=== PATIENT | male | born 1960 | race Caucasian/White ===

== ENCOUNTER 2018-10-08 16:40 | Emergency (ER) | payer MEDICAID ==
[~2018-10-08] VITALS: Ht 172.7 cm; Wt 136.4 kg
[2018-10-08 16:47] VITALS: TEMP 97.8
[2018-10-08 17:13] LABS: BASO # 0.1 (0.0-0.2); BASO % 0.6 % (0.0-2.0); EOS # 0.2 (0.0-0.7); EOS % 1.9 % (0-4.0); GRAN # 6.2 (1.4-6.5); GRAN % 66.2 % (42.2-75.2); HEMATOCRIT 47.7 % (42.0-52.0); HEMOGLOBIN 16.3 g/dl (13.5-18.0); LYMPH # 2.1 (1.2-3.4); LYMPH % 22.3 % (20.0-51.0); MEAN CELL VOLUME 90 fl (80.0-100.0); MEAN CORPUSCULAR HEMOGLOBIN 31 pg (27.0-31.0); MEAN CORPUSCULAR HGB CONC 34 g/dl (33.0-37.0); MEAN PLATELET VOLUME 9.8 fl (7.4-10.4); MONO # 0.8 (0.1-0.6); MONO % 8.5 % (1.7-9.3); PLATELET COUNT 278 K/mm3 (130-400); RED BLOOD COUNT 5.33 M/mm3 (4.20-5.60); REDCELL DISTRIBUTION WIDTH-CV 13.5 % (11.5-14.5)
[2018-10-08 17:16] LABS: INR 1.2 (0.8-3.0); PROTHROMBIN TIME 13.4 SECONDS (9.7-12.8)
[2018-10-08 17:23] LABS: ALANINE AMINOTRANSFERASE < 6 U/L (21-72); ALBUMIN 4.4 gm/dL (3.5-5.0); ALKALINE PHOSPHATASE 87 U/L (50-136); ANION GAP 12 mmol/L (7-16); AST,SGOT 36 U/L (15-37); BILIRUBIN,TOTAL 0.7 mg/dL (0.0-1.0); BLOOD UREA NITROGEN 16 mg/dL (9-20); CALCIUM 10.6 mg/dL (8.4-10.2); CARBON DIOXIDE 21 mmol/L (22-30); CHLORIDE 108 mmol/L (98-107); CREATINE KINASE 229 U/L (55-170); CREATININE, serum 1.24 (0.66-1.25); GLUCOSE 108 mg/dL (74-106); LIPASE 57 U/L (23-300); POTASSIUM 3.9 mmol/L (3.4-5.0); SODIUM 141 mmol/L (137-145); TOTAL PROTEIN 8.5 gm/dL (6.4-8.2)
[2018-10-08] MEDS ORDERED: CYMBALTA 60MG60 MG PO (17:26)
[2018-10-08] MEDS ORDERED: LYRICA 50MG CAP50 MG PO (17:27)
[2018-10-08] MEDS ORDERED: KLONOPIN 0.5MG0.5 MG PO (17:27)
[2018-10-08] MEDS ORDERED: AMBIEN 5MG TABLE5 MG PO (17:27)
[2018-10-08 17:39] LABS: TROPONIN-I < 0.012 ng/mL (0.000-0.035)
[2018-10-08 20:33] VITALS: BP 119/65; PULSE 86
== END 2018-10-08 20:20 | disposition home or self-care (01) ==
LOC: COL.ER 16:40
PROVIDERS: Emergency Medicine
DX: E86.0 Dehydration (principal); R53.83 Other fatigue; J44.9 Chronic obstructive pulmonary disease, unspecified; E11.9 Type 2 diabetes mellitus without complications; F17.210 Nicotine dependence, cigarettes, uncomplicated; Z90.49 Acquired absence of other specified parts of digestive tract
CPT/HCPCS: J7030

== ENCOUNTER 2019-01-22 12:19 | Emergency (ER) | payer MEDICAID ==
[~2019-01-22] VITALS: Ht 172.7 cm; Wt 134.1 kg
[~2019-01-22 12:19] MED LIST: AMBIEN 5MG TABLE5 MG PO; CYMBALTA 60MG60 MG PO; KLONOPIN 0.5MG0.5 MG PO; LYRICA 50MG CAP50 MG PO
[2019-01-22] MEDS ORDERED: AMITRIPTYLINE H50 M1 (12:27)
[2019-01-22] MEDS ORDERED: LIORESAL 1010 MG/TAB (12:27)
[2019-01-22] MEDS ORDERED: GLUCOPHAGE500 MG/TAB PO (12:27)
[2019-01-22] MEDS ORDERED: FENOGLIDE40 MG (12:28)
[2019-01-22 12:29] VITALS: TEMP 98.6
[2019-01-22] MEDS ORDERED: FLOMAX 0.40.4 MG/CAP (12:29)
[2019-01-22] MEDS ORDERED: PROSCAR 5MG5 MG (12:29)
[2019-01-22 16:48] VITALS: BP 148/63; PULSE 81
[2019-01-22] MEDS ORDERED: NORCO 325 MG-51 TAB PO (16:48)
[2019-01-22] MEDS ORDERED: VALIUM 5MG T5 MG/TAB PO (16:48)
== END 2019-01-22 16:48 | disposition home or self-care (01) ==
LOC: COL.ER 12:19
DX: S33.9XXA Sprain of unspecified parts of lumbar spine and pelvis, initial encounter (principal); E66.9 Obesity, unspecified; E78.5 Hyperlipidemia, unspecified; Z79.84 Long term (current) use of oral hypoglycemic drugs; E11.9 Type 2 diabetes mellitus without complications; F17.210 Nicotine dependence, cigarettes, uncomplicated; Z90.49 Acquired absence of other specified parts of digestive tract; Z68.41 Body mass index [BMI] 40.0-44.9, adult; V49.69XA Unspecified car occupant injured in collision with other motor vehicles in traffic accident, initial encounter
CPT/HCPCS: J1885

== ENCOUNTER → 2019-02-01 | Outpatient (CLI) | payer MEDICAID ==
[~2019-02-01] MED LIST changes: +AMITRIPTYLINE H50 M1; +FENOGLIDE40 MG; +FLOMAX 0.40.4 MG/CAP; +GLUCOPHAGE500 MG/TAB PO; +LIORESAL 1010 MG/TAB; +NORCO 325 MG-51 TAB PO; +PROSCAR 5MG5 MG; +VALIUM 5MG T5 MG/TAB PO
[2019-02-01 20:47] LABS: ALBUMIN 4.3 gm/dL (3.5-5.0); BILIRUBIN,TOTAL 0.4 mg/dL (0.0-1.0); CALCIUM 9.3 mg/dL (8.4-10.2); CREATININE, serum 1.04 (0.66-1.25); POTASSIUM 4.3 mmol/L (3.4-5.0)
[2019-02-01 21:19] LABS: PSA-TOTAL 0.46 ng/mL (0-4)
[2019-02-02 18:17] LABS: CREATININE OTHER SOURCE 61 mg/dL (()); URINE MICROALBUMIN <0.5 mg/dL (0.0-1.7)
== END ==
LOC: ZCOL.LAB 17:29
PROVIDERS: Family Medicine
DX: Z12.5 Encounter for screening for malignant neoplasm of prostate (principal); Z11.59 Encounter for screening for other viral diseases; E11.9 Type 2 diabetes mellitus without complications; E78.5 Hyperlipidemia, unspecified
CPT/HCPCS: G0103

== ENCOUNTER → 2019-02-23 | Outpatient (CLI) | payer MEDICAID | LOC: COL.PUL 02-10 11:40 | DX: J44.9 Chronic obstructive pulmonary disease, unspecified (principal); M54.9 Dorsalgia, unspecified; G89.29 Other chronic pain ==

== ENCOUNTER → 2019-03-07 | Outpatient (CLI) | payer MEDICAID | LOC: COL.RAD 12:34 | DX: M54.9 Dorsalgia, unspecified (principal); R60.0 Localized edema ==

== ENCOUNTER 2019-03-16 18:34 | Emergency (ER) | payer MEDICAID ==
[~2019-03-16] VITALS: Ht 175.3 cm; Wt 136.4 kg
[2019-03-16 18:42] VITALS: BP 129/92; TEMP 98.2
[2019-03-16 19:29] VITALS: PULSE 88
== END 2019-03-16 19:29 | disposition home or self-care (01) ==
LOC: COL.ER 18:34
DX: M54.5 Low back pain (principal); G89.29 Other chronic pain; J44.9 Chronic obstructive pulmonary disease, unspecified; E78.5 Hyperlipidemia, unspecified; F17.210 Nicotine dependence, cigarettes, uncomplicated; Z79.84 Long term (current) use of oral hypoglycemic drugs; Z88.8 Allergy status to other drugs, medicaments and biological substances; Z90.89 Acquired absence of other organs
CPT/HCPCS: J1885; J2360

== ENCOUNTER 2019-04-22 22:13 | Emergency (ER) | payer MEDICAID ==
[~2019-04-22] VITALS: Ht 175.3 cm; Wt 134.1 kg
[2019-04-22 22:18] VITALS: TEMP 96.7
[2019-04-22 23:15] VITALS: BP 115/73; PULSE 81
== END 2019-04-22 23:17 | disposition home or self-care (01) ==
LOC: COL.ER 22:13
DX: S61.212A Laceration without foreign body of right middle finger without damage to nail, initial encounter (principal); W26.0XXA Contact with knife, initial encounter; Y92.009 Unspecified place in unspecified non-institutional (private) residence as the place of occurrence of the external cause

== ENCOUNTER → 2019-04-26 | Outpatient (CLI) | payer MEDICAID ==
[~2019-04-26] MED LIST changes: +FLEXERIL 1010 MG/TAB PO; +KLONOPIN 1MG1 MG PO; +PREDNISONE20 MG PO; +ZITHROMAX 250M250 MG PO
== END ==
LOC: MHCPAIN 14:08
DX: M47.817 Spondylosis without myelopathy or radiculopathy, lumbosacral region (principal); M53.3 Sacrococcygeal disorders, not elsewhere classified
CPT/HCPCS: G0463

== ENCOUNTER 2019-05-07 19:37 | Emergency (ER) | payer MEDICAID ==
[~2019-05-07] VITALS: Ht 172.7 cm; Wt 134.1 kg
[~2019-05-07 19:37] MED LIST changes: -FLEXERIL 1010 MG/TAB PO; -KLONOPIN 1MG1 MG PO; -PREDNISONE20 MG PO; -ZITHROMAX 250M250 MG PO
[2019-05-07 19:40] VITALS: BP 121/66; TEMP 97.9
[2019-05-07] MEDS ORDERED: FLEXERIL 1010 MG/TAB PO (20:05)
[2019-05-07] MEDS ORDERED: NORCO 325 MG-51 TAB PO (20:05)
[2019-05-07 20:34] VITALS: PULSE 90
== END 2019-05-07 20:34 | disposition home or self-care (01) ==
LOC: COL.ER 19:37
DX: S39.012A Strain of muscle, fascia and tendon of lower back, initial encounter (principal); E11.9 Type 2 diabetes mellitus without complications; F17.210 Nicotine dependence, cigarettes, uncomplicated; Z90.89 Acquired absence of other organs; Z79.84 Long term (current) use of oral hypoglycemic drugs; X58.XXXA Exposure to other specified factors, initial encounter
CPT/HCPCS: J1885

== ENCOUNTER 2019-06-15 16:04 | Emergency (ER) | payer MEDICAID ==
[~2019-06-15] VITALS: Ht 172.7 cm; Wt 134.1 kg
[~2019-06-15 16:04] MED LIST changes: +FLEXERIL 1010 MG/TAB PO
[2019-06-15 16:06] VITALS: TEMP 98.4
[2019-06-15 17:03] LABS: BASO # 0.1 (0.0-0.2); BASO % 0.6 % (0.0-2.0); EOS # 0.2 (0.0-0.7); GRAN # 5.5 (1.4-6.5); GRAN % 66.4 % (42.2-75.2); HEMATOCRIT 47.5 % (42.0-52.0); HEMOGLOBIN 16.1 g/dl (13.5-18.0); LYMPH # 1.9 (1.2-3.4); MEAN CELL VOLUME 90 fl (80.0-100.0); MEAN CORPUSCULAR HEMOGLOBIN 31 pg (27.0-31.0); MEAN CORPUSCULAR HGB CONC 34 g/dl (33.0-37.0); MEAN PLATELET VOLUME 10.1 fl (7.4-10.4); MONO # 0.6 (0.1-0.6); MONO % 7.2 % (1.7-9.3); PLATELET COUNT 235 K/mm3 (130-400); RED BLOOD COUNT 5.27 M/mm3 (4.20-5.60); REDCELL DISTRIBUTION WIDTH-CV 12.8 % (11.5-14.5)
[2019-06-15 17:12] LABS: ALANINE AMINOTRANSFERASE 13 U/L (21-72); ALBUMIN 4.6 gm/dL (3.5-5.0); ALKALINE PHOSPHATASE 62 U/L (50-136); ANION GAP 11 mmol/L (7-16); AST,SGOT 34 U/L (15-37); BILIRUBIN,TOTAL 0.9 mg/dL (0.0-1.0); BLOOD UREA NITROGEN 13 mg/dL (9-20); CALCIUM 9.4 mg/dL (8.4-10.2); CARBON DIOXIDE 21 mmol/L (22-30); CHLORIDE 106 mmol/L (98-107); CREATININE, serum 1.13 (0.66-1.25); GLUCOSE 107 mg/dL (74-106); LIPASE 60 U/L (23-300); POTASSIUM 4.3 mmol/L (3.4-5.0); SODIUM 137 mmol/L (137-145); TOTAL PROTEIN 8.3 gm/dL (6.4-8.2)
[2019-06-15 17:21] LABS: TROPONIN-I < 0.012 ng/mL (0.000-0.035)
[2019-06-15] MEDS ORDERED: KLONOPIN 1MG1 MG PO (18:02)
[2019-06-15 19:30] VITALS: BP 126/84; PULSE 88
== END 2019-06-15 19:30 | disposition home or self-care (01) ==
LOC: COL.ER 16:04
PROVIDERS: Emergency Medicine
DX: F41.9 Anxiety disorder, unspecified (principal); R07.89 Other chest pain; F32.9 Major depressive disorder, single episode, unspecified; F17.210 Nicotine dependence, cigarettes, uncomplicated; Z90.89 Acquired absence of other organs

== ENCOUNTER 2019-06-24 14:02 | Emergency (ER) | payer MEDICAID ==
[~2019-06-24] VITALS: Ht 172.7 cm; Wt 132.7 kg
[~2019-06-24 14:02] MED LIST changes: +KLONOPIN 1MG1 MG PO
[2019-06-24 14:04] VITALS: BP 103/73; TEMP 97.8
[2019-06-24] MEDS ORDERED: ZITHROMAX 250M250 MG PO (16:10)
[2019-06-24] MEDS ORDERED: PREDNISONE20 MG PO (16:10)
[2019-06-24 16:46] VITALS: PULSE 78
== END 2019-06-24 16:46 | disposition home or self-care (01) ==
LOC: COL.ER 14:02
DX: J44.1 Chronic obstructive pulmonary disease with (acute) exacerbation (principal); J20.9 Acute bronchitis, unspecified; E11.9 Type 2 diabetes mellitus without complications; F17.210 Nicotine dependence, cigarettes, uncomplicated; F41.9 Anxiety disorder, unspecified; Z79.84 Long term (current) use of oral hypoglycemic drugs
CPT/HCPCS: J7512

== ENCOUNTER 2019-08-05 09:28 | Emergency (ER) | payer MEDICAID ==
[~2019-08-05] VITALS: Ht 172.7 cm; Wt 132.3 kg
[~2019-08-05 09:28] MED LIST changes: +PREDNISONE20 MG PO; +ZITHROMAX 250M250 MG PO
[2019-08-05 09:35] VITALS: BP 151/73; TEMP 97.6
[2019-08-05 10:06] LABS: COLLECTION METHOD CLEAN CATCH
[2019-08-05 10:11] LABS: PH 5 (5-8); SQUAMOUS EPITHELIAL None Seen /hpf; URINE APPEARANCE Clear; URINE BACTERIA None Seen /hpf; URINE BILIRUBIN Negative (NEGATIVE); URINE BLOOD Negative (NEGATIVE); URINE COLOR Yellow; URINE GLUCOSE Negative (NEGATIVE); URINE KETONE Negative (NEGATIVE); URINE LEUKOCYTE ESTERASE Negative (NEGATIVE); URINE NITRATE Negative (NEGATIVE); URINE PROTEIN(semi-quant) Negative (NEGATIVE); URINE RBC 0-2 /hpf; URINE UROBILINOGEN Negative (NEGATIVE)
[2019-08-05 10:40] LABS: BASO # 0.1 (0.0-0.2); BASO % 0.6 % (0.0-2.0); EOS # 0.5 (0.0-0.7); EOS % 4.8 % (0-4.0); GRAN # 5.7 (1.4-6.5); GRAN % 60.3 % (42.2-75.2); HEMATOCRIT 45.9 % (42.0-52.0); HEMOGLOBIN 15.6 g/dl (13.5-18.0); LYMPH # 2.4 (1.2-3.4); LYMPH % 25.6 % (20.0-51.0); MEAN CELL VOLUME 91 fl (80.0-100.0); MEAN CORPUSCULAR HEMOGLOBIN 31 pg (27.0-31.0); MEAN CORPUSCULAR HGB CONC 34 g/dl (33.0-37.0); MEAN PLATELET VOLUME 9.9 fl (7.4-10.4); MONO # 0.8 (0.1-0.6); MONO % 7.9 % (1.7-9.3); PLATELET COUNT 201 K/mm3 (130-400); RED BLOOD COUNT 5.03 M/mm3 (4.20-5.60); REDCELL DISTRIBUTION WIDTH-CV 13.1 % (11.5-14.5)
[2019-08-05 10:58] LABS: ALBUMIN 4.6 gm/dL (3.5-5.0); BILIRUBIN,TOTAL 0.5 mg/dL (0.0-1.0); C-REACTIVE PROTEIN 0.7 mg/dL (0.0-0.9); CALCIUM 9.4 mg/dL (8.4-10.2); CREATININE, serum 0.95 (0.66-1.25); TOTAL PROTEIN 8.3 gm/dL (6.4-8.2)
[2019-08-05] MEDS ORDERED: LIDODERM 5% PATC1 EA TP (11:16)
[2019-08-05] MEDS ORDERED: NAPROSYN500 MG PO (11:16)
[2019-08-05 11:55] VITALS: PULSE 87
== END 2019-08-05 11:55 | disposition home or self-care (01) ==
LOC: COL.ER 09:28
PROVIDERS: Physician Assistant
DX: R10.9 Unspecified abdominal pain (principal); E11.9 Type 2 diabetes mellitus without complications; J44.9 Chronic obstructive pulmonary disease, unspecified; M47.812 Spondylosis without myelopathy or radiculopathy, cervical region; F17.210 Nicotine dependence, cigarettes, uncomplicated; Z79.84 Long term (current) use of oral hypoglycemic drugs; Z87.440 Personal history of urinary (tract) infections; Z90.49 Acquired absence of other specified parts of digestive tract
CPT/HCPCS: J1885; J7030

== ENCOUNTER 2019-10-06 06:37 | Emergency (ER) | payer MEDICAID ==
[~2019-10-06] VITALS: Ht 172.7 cm; Wt 136.4 kg
[~2019-10-06 06:37] MED LIST changes: -FLOMAX 0.40.4 MG/CAP; +FLOMAX 0.40.4 MG/CAP PO; -KLONOPIN 0.5MG0.5 MG PO; +LIDODERM 5% PATC1 EA TP; +NAPROSYN500 MG PO; -PROSCAR 5MG5 MG; +PROSCAR 5MG5 MG PO
[2019-10-06 06:41] VITALS: TEMP 98
[2019-10-06] MEDS ORDERED: DESYREL DIVIDO150 M1 PO (06:48)
[2019-10-06] MEDS ORDERED: LIORESAL20 MG PO ×2 (06:49→07:10)
[2019-10-06] MEDS ORDERED: DESYREL DIVIDO300 MG PO (07:10)
[2019-10-06 07:27] LABS: BASO # 0.1 (0.0-0.2); BASO % 0.6 % (0.0-2.0); EOS # 0.3 (0.0-0.7); EOS % 2.9 % (0-4.0); GRAN # 5.9 (1.4-6.5); GRAN % 66.5 % (42.2-75.2); HEMATOCRIT 50.5 % (42.0-52.0); HEMOGLOBIN 17.2 g/dl (13.5-18.0); LYMPH % 22.1 % (20.0-51.0); MEAN CELL VOLUME 91 fl (80.0-100.0); MEAN CORPUSCULAR HEMOGLOBIN 31 pg (27.0-31.0); MEAN CORPUSCULAR HGB CONC 34 g/dl (33.0-37.0); MEAN PLATELET VOLUME 10.3 fl (7.4-10.4); MONO # 0.7 (0.1-0.6); MONO % 7.5 % (1.7-9.3); PLATELET COUNT 218 K/mm3 (130-400); RED BLOOD COUNT 5.56 M/mm3 (4.20-5.60); REDCELL DISTRIBUTION WIDTH-CV 12.8 % (11.5-14.5)
[2019-10-06 07:43] LABS: ALANINE AMINOTRANSFERASE 19 U/L (4-49); ALBUMIN 4.7 gm/dL (3.5-5.0); ALKALINE PHOSPHATASE 80 U/L (50-136); ANION GAP 9 mmol/L (7-16); AST,SGOT 38 U/L (15-37); BILIRUBIN,TOTAL 0.9 mg/dL (0.0-1.0); BLOOD UREA NITROGEN 10 mg/dL (9-20); CALCIUM 9.8 mg/dL (8.4-10.2); CARBON DIOXIDE 25 mmol/L (22-30); CHLORIDE 101 mmol/L (98-107); CREATININE, serum 0.85 (0.66-1.25); GLUCOSE 113 mg/dL (74-106); POTASSIUM 4.1 mmol/L (3.4-5.0); SODIUM 135 mmol/L (137-145); TOTAL PROTEIN 8.5 gm/dL (6.4-8.2)
[2019-10-06 07:54] LABS: TROPONIN-I < 0.012 ng/mL (0.000-0.035)
[2019-10-06 09:51] VITALS: BP 138/89; PULSE 95
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
== END 2019-10-06 09:51 | disposition home or self-care (01) ==
LOC: COL.ER 06:37
PROVIDERS: Emergency Medicine
DX: R25.2 Cramp and spasm (principal); E11.9 Type 2 diabetes mellitus without complications; J44.9 Chronic obstructive pulmonary disease, unspecified; F17.210 Nicotine dependence, cigarettes, uncomplicated; Z79.84 Long term (current) use of oral hypoglycemic drugs
CPT/HCPCS: J2060; J7030